=== PATIENT | female | born 2005 | race Caucasian/White ===

== ENCOUNTER 2023-03-15 15:52 | Outpatient (CLI) | payer BC, SELFPAY ==
[2023-03-15 23:22] LABS: Chlamydia DNA Amplified* NOT DETECTED (No Detected); GC DNA Amplified* NOT DETECTED (No Detected)
== END 2023-03-15 15:53 | disposition home or self-care (01) ==
PROVIDERS: PCP Physician Assistant Medical; Visit Provider Physician Assistant Medical
DX: Z11.3 Encounter for screening for infections with a predominantly sexual mode of transmission (principal)
CPT/HCPCS: 82306; 83540; 83550; 84443; 86592; 86703; 86803; 87491; 87591

== ENCOUNTER 2024-05-20 17:16 | Outpatient (CLI) | payer BC, SELFPAY ==
[2024-05-20 23:28] LABS: Chlamydia DNA Amplified* NOT DETECTED (No Detected); GC DNA Amplified* NOT DETECTED (No Detected)
== END 2024-05-20 17:17 | disposition home or self-care (01) ==
PROVIDERS: PCP Physician Assistant Medical; Visit Provider Physician Assistant Medical
DX: R14.0 Abdominal distension (gaseous) (principal); Z11.59 Encounter for screening for other viral diseases; Z11.4 Encounter for screening for human immunodeficiency virus [HIV]; Z11.3 Encounter for screening for infections with a predominantly sexual mode of transmission; Z13.29 Encounter for screening for other suspected endocrine disorder; Z13.0 Encounter for screening for diseases of the blood and blood-forming organs and certain disorders involving the immune mechanism
CPT/HCPCS: 82728; 83540; 83550; 84443; 86231; 86258; 86364; 86592; 86703; 86803; 87491; 87591; 87624; 87625; 88141; 88142